=== PATIENT | male | born 2000 | race African-American/Black ===

== ENCOUNTER 2021-06-18 23:48 | Emergency (ER) | payer BC, OTHER ==
[~2021-06-18] VITALS: Ht 172.7 cm; Wt 73.2 kg
[2021-06-19 08:00] LABS: BASO # 0.1 10^3/uL (0.0-0.2); BASO % 0.8 % (0.0-1.0); EOS # 0.2 10^3/uL (0.0-0.5); EOS % 2.4 % (0.0-3.0); HEMATOCRIT 50.4 % (42.0-52.0); HEMOGLOBIN 17.3 g/dl (13.5-17.5); LYMPH # 2.2 10^3/uL (1.5-5.0); LYMPH % 34.6 % (24.0-44.0); MEAN CORPUSCULAR HEMOGLOBIN 29.9 pg (27.0-33.0); MEAN CORPUSCULAR HGB CONC 34.3 g/dl (32.0-36.5); MEAN CORPUSCULAR VOLUME 87.2 fl (80.0-96.0); MONO # 0.4 10^3/uL (0.0-0.8); MONO % 6.6 % (2.0-8.0); NEUTROPHILS # 3.5 10^3/uL (1.5-8.5); NEUTROPHILS % 55.3 % (36.0-66.0); PLATELET COUNT, AUTOMATED 249 10^3/uL (150-450); RED BLOOD COUNT 5.78 10^6/uL (4.30-6.10); WHITE BLOOD COUNT 6.3 10^3/uL (4.0-10.0)
--- NOTE | 2021-06-19 08:12 | ECGEPIP ---
[facility] - ED Test Date: 2021-06-19 Pat Name: BRYANT VIRGEN Department: Room: - Gender: Male [employer]: : [id number] Requested By: SORIN BARROW PA-C. Order Number: [id number] Reading MD: Michele Aponte Measurements Intervals [place] Rate: 51 P: 24 MA: 132 QRS: 57 QRSD: 104 T: 44 QT: 392 QTc: 361 Interpretive Statements Sinus bradycardia INCOMPLETE RIGHT BUNDLE BRANCH BLOCK Early repolarization NO PRIORS FOR COMPARISON Electronically Signed on 06-19-2021 8:11:34 EDT by Michele Aponte
[2021-06-19 08:20] LABS: BLOOD UREA NITROGEN 7 MG/DL (7-18); CALCIUM LEVEL 9.7 MG/DL (8.5-10.1); CARBON DIOXIDE LEVEL 31 MEQ/L (21-32); CHLORIDE LEVEL 101 MEQ/L (98-107); CK-MB VALUE MASS < 1.0 NG/ML (<3.6); CPK CREATINE PHOSPHOKINASE 114 U/L (39-308); CREATININE FOR GFR 0.81 MG/DL (0.70-1.30); GLOMERULAR FILTRATION RATE > 60.0 (>60); GLUCOSE, FASTING 91 MG/DL (70-100); MB/CK RELATIVE INDEX 0.88 (< OR =4); POTASSIUM SERUM 4.1 MEQ/L (3.5-5.1); SODIUM LEVEL 139 MEQ/L (136-145); TROPONIN I < 0.02 NG/ML (< 0.10)
--- NOTE | 2021-06-19 08:28 | REP ---
INDICATION: CHEST PAIN COMPARISON: None. TECHNIQUE: PA/Lateral FINDINGS: Lungs: Clear, no infiltrate. Heart: Normal in size. Mediastinum: Mediastinal silhouette unremarkable. Pleural angles: Unremarkable.. Bones and soft tissues: Unremarkable. IMPRESSION: No acute pulmonary disease. <Electronically signed by Abad Castillo > 06/19/21 [id number]
[2021-06-19 09:31] VITALS: BP 120/58
== END 2021-06-19 09:35 | disposition home or self-care (01) ==
LOC: M ED 23:48
DX: R07.89 Other chest pain (principal)